=== PATIENT | male | born 1940 | race Two or more races ===

== ENCOUNTER 2023-08-14 13:04 | Inpatient (IN) | payer MEDICARE ==
[~2023-08-14] VITALS: Ht 172.7 cm; Wt 61.3 kg
[2023-08-14] MEDS ORDERED: ATOR20TA PO (13:17)
[2023-08-14] MEDS ORDERED: NITR0.3T12 SL (13:17)
[2023-08-14 15:14] LABS: BASOPHILS % (AUTO) 0.3 % (0.0-2.0); EOSINOPHILS % (AUTO) 0 % (1.0-6.0); LYMPHOCYTES # (AUTO) 2.8 K/uL (1.0-4.8); LYMPHOCYTES % (AUTO) 42.2 % (22.0-44.0); MEAN CORPUSCULAR HEMOGLOBIN 33.2 pg (26.0-34.0); MEAN CORPUSCULAR HGB CONC 34.4 G/dL (31.0-37.0); MEAN CORPUSCULAR VOLUME 96 fL (80-100); MONOCYTES # (AUTO) 0.7 K/uL (0.1-1.0); MONOCYTES % (AUTO) 10.6 % (2.0-9.0); NEUTROPHILS # (AUTO) 3.1 K/uL (1.8-7.7); NEUTROPHILS % (AUTO) 46.9 % (40.0-70.0); PLATELET COUNT (AUTO) 159 K/uL (150-450); RED BLOOD CELL COUNT(AUTO) 3.63 MIL/uL (4.50-5.90); RED CELL DISTRIBUTION WIDTH 13.7 % (11.5-14.5); WHITE BLOOD COUNT (AUTO) 6.7 K/uL (4.5-11.0)
[2023-08-14 15:30] LABS: INR 1.1 (0.9-1.1); PROTHROMBIN TIME 11.4 SEC (9.4-11.6)
[2023-08-14 15:32] LABS: TROPONIN I-HIGH SENSITIVITY 35 ng/L (<76)
[2023-08-14 15:39] LABS: B-TYPE NATRIURETIC PEPTIDE 291 pg/mL (0-100)
[2023-08-14 16:31] LABS: ANION GAP 12 mmol/L (8-16); CALCIUM, TOTAL 9.1 mg/dL (8.8-10.5); CARBON DIOXIDE 25 mmol/L (22-29); CHLORIDE 98 mmol/L (98-107); CREATININE 1.15 mg/dL (0.60-1.30); GLOMERULAR FILTR. RATE CALC > 60 mL/min (>60); GLUCOSE,RANDOM 102 mg/dL (70-110); POTASSIUM 4.1 mmol/L (3.5-5.1); SODIUM SERUM 135 mmol/L (136-145); UREA NITROGEN, BLOOD 34 mg/dL (7-18)
[2023-08-14 16:56] LABS: ALANINE AMINOTRANSFERASE 78 U/L (12-78); ALBUMIN 3.6 g/dL (3.4-5.0); ALKALINE PHOSPHATASE 83 U/L (46-116); ASPARTATE AMINOTRANSFERASE 92 U/L (15-37); CREATINE KINASE, TOTAL ONLY 882 U/L (39-308); TOTAL PROTEIN, SERUM 7.7 g/dL (6.4-8.2)
[2023-08-14 18:11] LABS: APPEARANCE,URINE CLEAR (CLEAR); BILIRUBIN,URINE NEGATIVE (NEGATIVE); COLOR,URINE YELLOW (YELLOW); GLUCOSE, URINE (UA) NEGATIVE (NEGATIVE); LEUKOCYTE ESTERASE ,URINE NEGATIVE (NEGATIVE); NITRATE,URINE POSITIVE (NEGATIVE); OCCULT BLOOD,URINE SMALL (NEGATIVE); PH,URINE 5.5 (5.0-8.0); PROTEIN,URINE 30-70 mg/dL (NEGATIVE); SPECIFIC GRAVITIY, URINE 1.029 (1.003-1.030)
[2023-08-14] MEDS: SODIUM CHLORIDE 0.9% 1,000 ML IV ONE (18:22)
[2023-08-14 18:26] LABS: AMORPHOUS SEDIMENT,UR Moderate /LPF (None Seen); BACTERIA,URINE Many /HPF (None Seen); SQUAMOUS EPITHELIAL CELL,UR Moderate /LPF (None Seen); WBC,URINE 0-2 /HPF (0-5)
[2023-08-14 19:17] LABS: COVID AG,FIA SOURCE NASAL SWAB
[2023-08-14] MEDS: CefTRIAXone 1 GM/DEXTROSE 50 ML IV ONE (19:39)
[2023-08-14 20:10] LABS: SARS-COV2 (COVID) ANTIGEN,FIA Positive (Negative)
[2023-08-14] MEDS ORDERED: BISACODYL 10 MG RECTAL RECTAL SUPPOSITORY PR PRN (21:00)
[2023-08-14] MEDS ORDERED: ACETAMINOPHEN 325 MG TABLET PO PRN (21:00)
[2023-08-14] MEDS ORDERED: ZOLPIDEM TARTRATE 5 MG TABLET PO PRN (21:00)
[2023-08-14] MEDS ORDERED: ONDANSETRON HCL 4 MG/2 ML VIAL IVP PRN (21:00)
[2023-08-14] MEDS ORDERED: MAGNESIUM HYDROXIDE SUSPENSION 30 ML UDCUP PO PRN (21:00)
[2023-08-14] MEDS ORDERED: HYDROCODONE/ACETAMINOPHEN 5-325 MG TABLET PO PRN (21:00)
[2023-08-14] MEDS ORDERED: MORPHINE SULFATE 2 MG/ML SYRINGE IVP PRN (21:00)
[2023-08-14 21:38] VITALS: BP 110/65; PULSE 83; RESP 18; TEMP 98.2
[2023-08-14] MEDS: AZITHROMYCIN 500 MG/NS 250 ML IV ONE (22:56)
[2023-08-14] MEDS: DOCUSATE SODIUM 100 MG CAPSULE PO SCH (22:56)
[2023-08-14] MEDS: HEPARIN SODIUM,PORCINE 5,000 UNITS/ML VIAL SQ SCH (23:47)
[2023-08-15 00:04] VITALS: BP 108/64; PULSE 64; RESP 18; TEMP 98.4
[2023-08-15 05:14] VITALS: BP 126/78; PULSE 67; RESP 18; TEMP 98.2
[2023-08-15] MEDS: DEXAMETHASONE SOD PHOS 4 MG/ML VIAL IVP SCH (09:39)
[2023-08-15] MEDS: ATORVASTATIN CALCIUM 20 MG TABLET PO SCH (09:45)
[2023-08-15] MEDS: PANTOPRAZOLE SODIUM 40 MG DR TABLET PO SCH (09:45)
[2023-08-15 10:17] VITALS: BP 123/77; PULSE 63; RESP 18; TEMP 98.2
[2023-08-15] MEDS: CefTRIAXone 1 GM/DEXTROSE 50 ML IV SCH (10:51)
[2023-08-15 11:43] VITALS: BP 117/73; PULSE 66; RESP 19; TEMP 98.1
[2023-08-15] MEDS: AZITHROMYCIN 500 MG/NS 250 ML IV SCH (11:47)
[2023-08-15 15:38] VITALS: BP 124/73; PULSE 68; RESP 18; TEMP 98
[2023-08-15 20:00] VITALS: BP 123/79; PULSE 72; RESP 19; TEMP 97.9
[2023-08-16 00:53] VITALS: BP 119/78; PULSE 69; RESP 16; TEMP 98.1
[2023-08-16 04:09] VITALS: BP 120/76; PULSE 75; RESP 18; TEMP 98
[2023-08-16 06:59] LABS: BASOPHILS % (AUTO) 0.1 % (0.0-2.0); EOSINOPHILS % (AUTO) 0.1 % (1.0-6.0); HEMATOCRIT 31.4 % (41-53); HEMOGLOBIN 11.2 g/dL (13.5-17.5); LYMPHOCYTES % (AUTO) 41.1 % (22.0-44.0); MEAN CORPUSCULAR HEMOGLOBIN 33.6 pg (26.0-34.0); MEAN CORPUSCULAR HGB CONC 35.6 G/dL (31.0-37.0); MEAN CORPUSCULAR VOLUME 95 fL (80-100); MONOCYTES # (AUTO) 0.4 K/uL (0.1-1.0); NEUTROPHILS # (AUTO) 2.4 K/uL (1.8-7.7); NEUTROPHILS % (AUTO) 49.7 % (40.0-70.0); PLATELET COUNT (AUTO) 153 K/uL (150-450); RED BLOOD CELL COUNT(AUTO) 3.32 MIL/uL (4.50-5.90); RED CELL DISTRIBUTION WIDTH 13.4 % (11.5-14.5); WHITE BLOOD COUNT (AUTO) 4.8 K/uL (4.5-11.0)
[2023-08-16 07:00] LABS: ANION GAP 9 mmol/L (8-16); CALCIUM, TOTAL 8.8 mg/dL (8.8-10.5); CARBON DIOXIDE 26 mmol/L (22-29); CHLORIDE 101 mmol/L (98-107); CREATININE 0.77 mg/dL (0.60-1.30); GLOMERULAR FILTR. RATE CALC > 60 mL/min (>60); GLUCOSE,RANDOM 116 mg/dL (70-110); POTASSIUM 3.9 mmol/L (3.5-5.1); SODIUM SERUM 135 mmol/L (136-145); UREA NITROGEN, BLOOD 24 mg/dL (7-18)
[2023-08-16] MEDS: DEXAMETHASONE 2 MG TABLET PO SCH (09:35)
[2023-08-16] MEDS ORDERED: CEPH250S35 PO (11:04)
[2023-08-16] MEDS ORDERED: CEPH250S56 PO (11:04)
[2023-08-16] MEDS ORDERED: AZIT100S13 PO (11:18)
== END 2023-08-16 15:30 | disposition home or self-care (01) | DRG 177 ==
LOC: EMS 13:14 → 5S 19:19
PROVIDERS: ADMIT Internal Medicine; ATTEND Internal Medicine
DX: U07.1 COVID-19 (principal); G93.41 Metabolic encephalopathy; N39.0 Urinary tract infection, site not specified; E44.0 Moderate protein-calorie malnutrition; R55 Syncope and collapse; I25.10 Atherosclerotic heart disease of native coronary artery without angina pectoris; I10 Essential (primary) hypertension; E78.00 Pure hypercholesterolemia, unspecified; R79.89 Other specified abnormal findings of blood chemistry; Z68.20 Body mass index [BMI] 20.0-20.9, adult
CPT/HCPCS: 70450; 71045; 72125; 80048; 80053; 81001; 82550; 83880; 84484; 85025; 85610; 85730; 87086; 87186; 92610; 93005; 97162; 99285; J0456; J0696; J1100; J1644; J7030; J8540; 36415-L1; 36415-TC